=== PATIENT | female | born 1995 ===

== ENCOUNTER 2018-01-05 17:58 | Inpatient (IN) | payer OTHER ==
[~2018-01-05] VITALS: Ht 160 cm; Wt 76.2 kg
[2018-02-13] MEDS ORDERED: PRENATAL TABLE1 EAC1 PO (17:46)
[2018-02-13] MEDS ORDERED: IRON325 MG PO (17:47)
== END 2018-02-16 11:34 | disposition home or self-care (01) | DRG 775 ==
LOC: LDR 02-07 17:57 → OB/GYN 02-13 17:16
PROC: 10E0XZZ Delivery of Products of Conception, External Approach (ICD-10-PCS; principal; 2018-02-14)
PROC: 0UQGXZZ Repair Vagina, External Approach (ICD-10-PCS; 2018-02-14)
PROC: 10907ZC Drainage of Amniotic Fluid, Therapeutic from Products of Conception, Via Natural or Artificial Opening (ICD-10-PCS; 2018-02-14)
PROC: 3E033VJ Introduction of Other Hormone into Peripheral Vein, Percutaneous Approach (ICD-10-PCS; 2018-02-14)
PROC: 4A1HXCZ Monitoring of Products of Conception, Cardiac Rate, External Approach (ICD-10-PCS; 2018-02-14)
DX: O71.4 Obstetric high vaginal laceration alone (principal); O99.02 Anemia complicating childbirth; Z3A.40 40 weeks gestation of pregnancy; Z37.0 Single live birth

== ENCOUNTER 2018-02-01 14:23 | Outpatient (CLI) | payer OTHER | END 2018-02-01 19:12 | disposition home or self-care (01) | LOC: NST 14:23 | DX: Z34.83 Encounter for supervision of other normal pregnancy, third trimester (principal) ==

== ENCOUNTER 2018-02-08 07:49 | Outpatient (CLI) | payer OTHER | END 2018-02-08 08:57 | disposition home or self-care (01) | LOC: NST 07:49 | DX: Z34.83 Encounter for supervision of other normal pregnancy, third trimester (principal) ==

== ENCOUNTER 2018-02-11 10:00 | Outpatient (CLI) | payer OTHER | END 2018-02-11 13:03 | disposition home or self-care (01) | LOC: NST 10:00 → OBS/DEL 10:01 → NST 13:03 | DX: Z34.83 Encounter for supervision of other normal pregnancy, third trimester (principal) ==